=== PATIENT | female | born 1970 | race Caucasian/White ===

== ENCOUNTER 2022-08-02 14:23 | Emergency (ER) | payer MEDICAID ==
[~2022-08-02] VITALS: Ht 175.3 cm; Wt 90.7 kg
[2022-08-02 14:25] VITALS: BP 136/78
[2022-08-02 15:41] LABS: BILIRUBIN,URINE NEGATIVE (NEGATIVE); BLOOD, URINE TRACE-I (NEGATIVE); LEUKOCYTE ESTERASE ,URINE 1+ (NEGATIVE); NITRITE, URINE NEGATIVE (NEGATIVE); UGLUCOSE NEGATIVE (NEGATIVE)
[2022-08-02 15:44] LABS: APPEARANCE,URINE HAZY (CLEAR); COLOR,URINE YELLOW (YELLOW)
[2022-08-02 15:59] LABS: RBC,URINE 0-5 /HPF (0-5); WBC,URINE 20-60 /HPF (0-5)
[2022-08-02] MEDS ORDERED: CEPH-588 PO (16:14)
[2022-08-02] MEDS ORDERED: cefTRIAXone 1,000 MG in LIDOCAINE MPF 1% 2.1 ML IM ONE (16:15)
[2022-08-02] MEDS ORDERED: cefTRIAXone 1,000 MG VIAL ONE (16:20)
[2022-08-02] MEDS ORDERED: LIDOCAINE MPF 1% 5 ML ONE (16:20)
--- NOTE | 2022-08-02 16:20 | NUR ---
CONTACTED KATE BOATENG, NEXT OF KIN TO ARRANGE TRANSPORT BACK TO FACILITY. SPOKE WITH DION AT THE [facility] PUBLIC [facility]ARD[facility] OFFICE TO ARRANGE TRANSPORT. ARNALDO MARIE NOTIFIED
--- NOTE | 2022-08-02 18:00 | NUR ---
52 Y/O FEMALE BIBA FROM [facility] C/O UTI S/S PER EMS STAFF STATED THAT PT URINE WAS FOUL SMELLING X8H ALLERGY: ABILIFY PMH: SCHIZOPHRENIA, MDD, ANXIETY, PARKINSONS, HTN
--- NOTE | 2022-08-02 20:12 | NUR ---
Patient discharged with v/s stable. Written and verbal after care instructions given and explained. Patient verbalized understanding. Ambulatory with by caregiver. All questions addressed prior to discharge. Advised to follow up with PMD.
[2022-08-05] MEDS ORDERED: NITR100C7 PO ×2 (08:05→10:06)
--- NOTE | 2022-08-05 10:21 | NUR ---
LATE ENTRY, RECEIVED POSITIVE URINE CULTURE. FORM GIVEN TO DR HOANG. NEW RX OF NITROFURANTOIN SENT TO PTS PHARMACY. CALL ARNALOD MARIE TO INFORM THEM OF NEW RX SENT TO PHARMACY, SPOKE WITH DINORAH. FORM PLACED IN BINDER
== END 2022-08-02 20:12 | disposition home or self-care (01) ==
LOC: MED 14:23
DX: N39.0 Urinary tract infection, site not specified (principal); F20.9 Schizophrenia, unspecified; F41.9 Anxiety disorder, unspecified; G20 Parkinson's disease; I10 Essential (primary) hypertension; Z88.1 Allergy status to other antibiotic agents; Z79.899 Other long term (current) drug therapy
CPT/HCPCS: 81001; 81025; 87086; 96372; 99283; J0696; J2001

== ENCOUNTER 2022-11-04 08:15 | Emergency (ER) | payer MEDICAID, OTHER ==
[~2022-11-04] VITALS: Ht 177.8 cm; Wt 59.0 kg
[~2022-11-04 08:15] MED LIST: CEPH-588 PO; NITR100C7 PO
[2022-11-04 08:17] VITALS: BP 114/78
--- NOTE | 2022-11-04 08:40 | NUR ---
PT MOVED TO BED 06 AT THIS TIME BY [facility]
--- NOTE | 2022-11-04 10:01 | NUR ---
PT AMBULATED TO BATHROOM WITH STEADY GAIT
[2022-11-04 10:45] LABS: BASOPHILS % (AUTO) 0.4 % (0.0-2.0); EOSINOPHILS # (AUTO) 0.1 K/uL (0-0.4); EOSINOPHILS % (AUTO) 0.7 % (0.0-4.0); HEMATOCRIT 44.6 % (36-48); HEMOGLOBIN 14.9 g/dL (12.0-16.0); LYMPHOCYTES # (AUTO) 2.1 K/uL (2.5-16.5); LYMPHOCYTES % (AUTO) 24.5 % (20.5-51.1); MEAN CORPUSCULAR HEMOGLOBIN 30 pg (27-31); MEAN CORPUSCULAR HGB CONC 34 g/dL (33-37); MEAN CORPUSCULAR VOLUME 87.9 fL (80-94); MONOCYTES # (AUTO) 0.5 K/uL (0.8-1.0); MONOCYTES % (AUTO) 6.2 % (1.7-9.3); NEUTROPHILS % (AUTO) 68.2 % (42.2-75.2); PLATELET COUNT (AUTO) 165 K/uL (140-450); RED BLOOD CELL COUNT(AUTO) 5.07 MIL/uL (4.20-5.40); RED CELL DISTRIBUTION WIDTH 13.8 % (11.6-13.7); WHITE BLOOD COUNT (AUTO) 8.7 K/uL (4.8-10.8)
[2022-11-04 11:07] LABS: ALBUMIN 3.8 g/dL (3.4-5.0); ANION GAP 14.4 (8-16); ASPARTATE AMINOTRANSFERASE 16 U/L (15-37); CARBON DIOXIDE 27.7 mmol/L (21-32); CHLORIDE 107 mmol/L (98-107); CREATININE 0.7 mg/dL (0.6-1.3); GFR ARICAN-AMERICAN 113 mL/min (>90); GLUCOSE 111 mg/dL (74-106); POTASSIUM 4.1 mmol/L (3.5-5.1); SODIUM SERUM 145 mmol/L (136-145); TOTAL BILIRUBIN 0.4 mg/dL (0.0-1.0); UREA NITROGEN, BLOOD 12 mg/dL (7-18)
[2022-11-04 11:08] LABS: ACETAMINOPHEN < 0.5 ug/ml (10-30); SALICYLATE < 2.8 mg/dL (2.8-20.0)
[2022-11-04 12:16] LABS: APPEARANCE,URINE CLEAR (CLEAR); BILIRUBIN,URINE NEGATIVE (NEGATIVE); BLOOD, URINE NEGATIVE (NEGATIVE); COLOR,URINE YELLOW (YELLOW); LEUKOCYTE ESTERASE ,URINE NEGATIVE (NEGATIVE); NITRITE, URINE NEGATIVE (NEGATIVE); PH,URINE 6.5 (5.0-9.0); UGLUCOSE NEGATIVE (NEGATIVE)
--- NOTE | 2022-11-04 13:34 | NUR ---
ASSUMED PATIENT CARE, NURSING ASSESSMENT COMPLETED.
[2022-11-04] MEDS ORDERED: ACETAMINOPHEN 325 MG TAB PO ONE (13:35)
[2022-11-04 16:12] VITALS: BP 119/72
--- NOTE | 2022-11-04 16:13 | NUR ---
Patient discharged with v/s stable. Written and verbal after care instructions given and explained. Patient verbalized understanding. FENCE Transport to [facility]. All questions addressed prior to discharge. Advised to follow up with PMD.
== END 2022-11-04 16:17 | disposition home or self-care (01) ==
LOC: MED 08:15
DX: M48.02 Spinal stenosis, cervical region (principal); G31.9 Degenerative disease of nervous system, unspecified; S00.12XA Contusion of left eyelid and periocular area, initial encounter; M21.931 Unspecified acquired deformity of right forearm; I10 Essential (primary) hypertension; F32.9 Major depressive disorder, single episode, unspecified; F41.9 Anxiety disorder, unspecified; F20.9 Schizophrenia, unspecified; Z79.2 Long term (current) use of antibiotics; Z88.8 Allergy status to other drugs, medicaments and biological substances; Y04.8XXA Assault by other bodily force, initial encounter; Y93.89 Activity, other specified; Y92.129 Unspecified place in nursing home as the place of occurrence of the external cause; Y99.8 Other external cause status
CPT/HCPCS: 36415; 70450; 71045; 72125; 72170; 73110; 73130; 80053; 81003; 82550; 85025; 85610; 85730; 99285; G0480; G0482

== ENCOUNTER 2023-03-10 16:34 | Emergency (ER) | payer OTHER ==
[~2023-03-10] VITALS: Ht 175.3 cm; Wt 77.1 kg
--- NOTE | 2023-03-10 16:47 | NUR ---
PATIENT BIBA TO ED BED
[2023-03-10 16:49] VITALS: BP 130/71; PULSE 72; RESP 20; TEMP 97.7; O2SAT 97
--- NOTE | 2023-03-10 17:33 | NUR ---
AT TO EXAMINE PT
--- NOTE | 2023-03-10 17:35 | NUR ---
FROM A MEMORY CARE UNIT , PER STAFF , MORE ALTERED THAN USUAL, WANDERING AROUND TO OTHER PTS ROOM, COVERED IN FECES, WHICH IS NOT NORMAL FOR HER
[2023-03-10] MEDS ORDERED: OLANZapine 5 MG ODT SL ONE (17:40)
[2023-03-10 18:20] LABS: BASOPHILS % (AUTO) 0.5 % (0.0-2.0); EOSINOPHILS # (AUTO) 0.1 K/uL (0-0.4); EOSINOPHILS % (AUTO) 1.3 % (0.0-4.0); HEMATOCRIT 41.6 % (36-48); HEMOGLOBIN 14.2 g/dL (12.0-16.0); LYMPHOCYTES # (AUTO) 2.2 K/uL (2.5-16.5); LYMPHOCYTES % (AUTO) 30.2 % (20.5-51.1); MEAN CORPUSCULAR HEMOGLOBIN 30 pg (27-31); MEAN CORPUSCULAR HGB CONC 34 g/dL (33-37); MEAN CORPUSCULAR VOLUME 88.6 fL (80-94); MONOCYTES # (AUTO) 0.9 K/uL (0.8-1.0); MONOCYTES % (AUTO) 11.6 % (1.7-9.3); NEUTROPHILS # (AUTO) 4.2 K/uL (1.8-7.7); NEUTROPHILS % (AUTO) 56.4 % (42.2-75.2); PLATELET COUNT (AUTO) 182 K/uL (140-450); RED BLOOD CELL COUNT(AUTO) 4.69 MIL/uL (4.20-5.40); RED CELL DISTRIBUTION WIDTH 13.2 % (11.6-13.7); WHITE BLOOD COUNT (AUTO) 7.4 K/uL (4.8-10.8)
[2023-03-10 18:40] LABS: ALBUMIN 3.9 g/dL (3.4-5.0); ANION GAP 12.4 (8-16); CARBON DIOXIDE 29.4 mmol/L (21-32); CREATININE 0.7 mg/dL (0.6-1.3); POTASSIUM 3.8 mmol/L (3.5-5.1); TOTAL BILIRUBIN 0.4 mg/dL (0.0-1.0)
--- NOTE | 2023-03-10 19:05 | NUR ---
Neida chapa in ED - 03/10/23 at 2128 by [email or web address] called jevon lugo and talked to katerine(med tech). informed of discharge instruction of pt.
--- NOTE | 2023-03-10 19:30 | NUR ---
pt resting on bed. a/ox2. not in distress. call light within reach. bed locked to lowest position. placed on moderate high back rest
[2023-03-10 20:09] LABS: APPEARANCE,URINE CLEAR (CLEAR); BILIRUBIN,URINE NEGATIVE (NEGATIVE); BLOOD, URINE TRACE-I (NEGATIVE); COLOR,URINE YELLOW (YELLOW); LEUKOCYTE ESTERASE ,URINE 1+ (NEGATIVE); NITRITE, URINE POSITIVE (NEGATIVE); UGLUCOSE NEGATIVE (NEGATIVE)
[2023-03-10] MEDS ORDERED: CEPH-588 PO (20:17)
--- NOTE | 2023-03-10 20:50 | NUR ---
called jevon lguo and talked to katerine([employer]). informed of discharge instruction of pt.
[2023-03-10 21:55] VITALS: BP 120/67; PULSE 72; RESP 18; TEMP 97.6; O2SAT 97
--- NOTE | 2023-03-10 21:55 | NUR ---
Patient discharged with v/s stable. Written and verbal after care instructions given and explained. Patient alert, oriented and verbalized understanding of instructions. Wheel Chair Assisted with to long term. All questions addressed prior to discharge. ID band removed. Patient advised to follow up with PMD. Rx given to pt. Patient educated on indication of medication including possible reaction and side effects. Opportunity to ask questions provided and answered.
== END 2023-03-10 21:55 | disposition home or self-care (01) ==
LOC: MED 16:34
DX: R41.0 Disorientation, unspecified (principal); N30.00 Acute cystitis without hematuria; I10 Essential (primary) hypertension; F03.90 Unspecified dementia, unspecified severity, without behavioral disturbance, psychotic disturbance, mood disturbance, and anxiety; F20.9 Schizophrenia, unspecified; E78.5 Hyperlipidemia, unspecified; Z79.2 Long term (current) use of antibiotics; Z88.8 Allergy status to other drugs, medicaments and biological substances
CPT/HCPCS: 36415; 70450; 80053; 81001; 85025; 87086; 99285

== ENCOUNTER 2023-03-27 11:10 | Emergency (ER) | payer OTHER ==
[~2023-03-27] VITALS: Ht 167.6 cm; Wt 77.1 kg
[2023-03-27 11:48] VITALS: BP 105/67; PULSE 69; RESP 16; TEMP 98.2; O2SAT 96
[2023-03-27] MEDS ORDERED: FOLI1TAB90 PO (12:31)
[2023-03-27] MEDS ORDERED: [UNRECOGNIZED DRUG - CODE] PO (12:31)
[2023-03-27] MEDS ORDERED: IBUP-2216 PO (12:31)
[2023-03-27] MEDS ORDERED: [UNRECOGNIZED DRUG - CODE] PO (12:31)
[2023-03-27] MEDS ORDERED: ATOR20TA40 PO (12:31)
[2023-03-27] MEDS ORDERED: MOM PO (12:31)
[2023-03-27] MEDS ORDERED: DIVA250E1 PO (12:31)
[2023-03-27] MEDS ORDERED: ASPI81EC98 PO (12:31)
[2023-03-27] MEDS ORDERED: CALC-741 PO (12:31)
[2023-03-27] MEDS ORDERED: DOCU250S72 PO (12:31)
[2023-03-27] MEDS ORDERED: RISP2TAB5 PO (12:31)
[2023-03-27] MEDS ORDERED: ACET325C5 PO (12:31)
[2023-03-27 13:00] LABS: BASOPHILS % (AUTO) 0.2 % (0.0-2.0); EOSINOPHILS # (AUTO) 0.1 K/uL (0-0.4); EOSINOPHILS % (AUTO) 0.9 % (0.0-4.0); HEMATOCRIT 41.8 % (36-48); HEMOGLOBIN 14.5 g/dL (12.0-16.0); LYMPHOCYTES # (AUTO) 2.1 K/uL (2.5-16.5); LYMPHOCYTES % (AUTO) 26.9 % (20.5-51.1); MEAN CORPUSCULAR HEMOGLOBIN 30 pg (27-31); MEAN CORPUSCULAR HGB CONC 35 g/dL (33-37); MEAN CORPUSCULAR VOLUME 86.3 fL (80-94); MONOCYTES # (AUTO) 0.8 K/uL (0.8-1.0); MONOCYTES % (AUTO) 10.6 % (1.7-9.3); NEUTROPHILS # (AUTO) 4.8 K/uL (1.8-7.7); NEUTROPHILS % (AUTO) 61.4 % (42.2-75.2); PLATELET COUNT (AUTO) 178 K/uL (140-450); RED BLOOD CELL COUNT(AUTO) 4.84 MIL/uL (4.20-5.40); RED CELL DISTRIBUTION WIDTH 13.5 % (11.6-13.7); WHITE BLOOD COUNT (AUTO) 7.9 K/uL (4.8-10.8)
[2023-03-27 13:09] LABS: APPEARANCE,URINE CLEAR (CLEAR); BILIRUBIN,URINE NEGATIVE (NEGATIVE); BLOOD, URINE 1+ (NEGATIVE); COLOR,URINE YELLOW (YELLOW); LEUKOCYTE ESTERASE ,URINE TRACE (NEGATIVE); NITRITE, URINE NEGATIVE (NEGATIVE); PROTEIN,URINE NEGATIVE (NEGATIVE); UGLUCOSE NEGATIVE (NEGATIVE); UROBILINOGEN,URINE 0.2 EU/dL (0.2 - 1)
[2023-03-27 13:37] LABS: ALANINE AMINOTRANSFERASE 17 U/L (12-78); ALBUMIN 3.8 g/dL (3.4-5.0); ALKALINE PHOSPHATASE 81 U/L (50-136); ANION GAP 13.5 (8-16); ASPARTATE AMINOTRANSFERASE 14 U/L (15-37); CALCIUM 9.4 mg/dL (8.5-10.1); CARBON DIOXIDE 29.1 mmol/L (21-32); CHLORIDE 100 mmol/L (98-107); CREATININE 0.8 mg/dL (0.6-1.3); GFR ARICAN-AMERICAN 96 mL/min (>90); GFR NON ARICAN-AMERICAN 79 mL/min (>90); GLUCOSE 95 mg/dL (74-106); POTASSIUM 4.6 mmol/L (3.5-5.1); SODIUM SERUM 138 mmol/L (136-145); TOTAL BILIRUBIN 0.6 mg/dL (0.0-1.0); TOTAL PROTEIN, SERUM 7.2 g/dL (6.4-8.2); UREA NITROGEN, BLOOD 7 mg/dL (7-18)
[2023-03-27 13:38] LABS: BACTERIA,URINE 2+ /HPF (None Seen); RBC,URINE 0-5 /HPF (0-5); WBC,URINE 0-5 /HPF (0-5)
[2023-03-27 18:45] VITALS: BP 110/58; PULSE 64; RESP 18; TEMP 97.6; O2SAT 96
== END 2023-03-27 18:38 | disposition home or self-care (01) ==
LOC: MED 11:10
DX: R41.0 Disorientation, unspecified (principal); I10 Essential (primary) hypertension; F03.90 Unspecified dementia, unspecified severity, without behavioral disturbance, psychotic disturbance, mood disturbance, and anxiety; F20.9 Schizophrenia, unspecified; E78.5 Hyperlipidemia, unspecified; F17.210 Nicotine dependence, cigarettes, uncomplicated; Z79.899 Other long term (current) drug therapy; Z98.890 Other specified postprocedural states; Z88.1 Allergy status to other antibiotic agents
CPT/HCPCS: 36415; 80053; 81001; 84484; 85025; 87086; 93005; 99284